=== PATIENT | male | born 1980 | race African-American/Black ===

== ENCOUNTER 2018-01-17 09:22 | Emergency (ER) | payer OTHER ==
[~2018-01-17] VITALS: Ht 188 cm; Wt 104.3 kg
--- NOTE | ~2018-01-17 | EKG ---
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
[~2018-01-17 09:22] MED LIST: LISINOPRIL10 MG PO; OMEPRAZOLE20 M2 PO; ZOFRAN4 MG PO; ZOLOFT25 MG PO
[2018-01-17 10:31] LABS: HEMATOCRIT 46.9 % (42.0-52.0); HEMOGLOBIN 15.8 gm/dL (14.0-18.0); MCH 30.4 pg (26.0-34.0); MCHC 33.7 g/dL (28.0-37.0); MCV 90.1 fL (80.0-100.0); RBC 5.21 mil/uL (4.50-6.00); WBC 4.5 thou/uL (4.0-11.0)
[2018-01-17 10:43] LABS: ANION GAP 10 mmol/L (7-16); BUN 17 mg/dL (7-18); CALCIUM 8.6 mg/dL (8.5-10.1); CHLORIDE 107 mmol/L (98-107); CO2 26 mmol/L (21-32); CREATININE 0.9 mg/dL (0.7-1.3); GLUCOSE 94 mg/dL (74-106); POTASSIUM 3.8 mmol/L (3.5-5.1); SODIUM 143 mmol/L (136-145)
[2018-01-17 10:51] LABS: TROPONIN-I <0.06 ng/mL (<0.06)
[2018-01-17] MEDS ORDERED: REGLAN 10 MG TA10 MG PO (11:35)
[2018-01-17 11:53] VITALS: BP 141/99
== END 2018-01-17 11:54 | disposition home or self-care (01) ==
LOC: ER 09:22
PROVIDERS: Physician Assistant
DX: R51 Headache (principal); R53.83 Other fatigue; I10 Essential (primary) hypertension

== ENCOUNTER 2018-01-23 21:34 | Emergency (ER) | payer OTHER ==
[~2018-01-23] VITALS: Ht 188 cm; Wt 98.0 kg
--- NOTE | ~2018-01-23 | EKG ---
[address] [address] ELECTROCARDIOGRAM REPORT Name: SADIE HARRINGTON Room #: DEP Michael#: [id number] Admission: 01/23/18 Attend Phys: Discharge: 01/23/18 Date of : 76 Report #: [id number] THIS REPORT FOR: //name// 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
[~2018-01-23 21:34] MED LIST changes: +REGLAN 10 MG TA10 MG PO
[2018-01-23] MEDS ORDERED: HYDROCHLOROTHIA25 M1 PO (21:46)
[2018-01-23] MEDS ORDERED: MAGNESIUM400 MG PO (21:47)
[2018-01-23] MEDS ORDERED: IMITREX 50 MG T50 MG PO (21:48)
[2018-01-23] MEDS ORDERED: ZOLOFT25 MG PO (21:48)
[2018-01-23] MEDS ORDERED: VISTARIL 25 MG25 M1 PO (22:25)
[2018-01-23 22:41] VITALS: BP 160/85
== END 2018-01-23 22:49 | disposition home or self-care (01) ==
LOC: ER 21:34
DX: F41.9 Anxiety disorder, unspecified (principal); I10 Essential (primary) hypertension; I49.3 Ventricular premature depolarization